=== PATIENT | female | born 2000 | race Two or more races ===

== ENCOUNTER 2022-04-06 16:33 | Emergency (ER) | payer MEDICAID, OTHER ==
[~2022-04-06] VITALS: Ht 165.1 cm; Wt 59.0 kg
[2022-04-06 18:14] LABS: Basophils # (auto) 0 10 ^3/uL (0-0.2); Basophils % (auto) 0.2 % (0.0-2.0); Eosinophils # (auto) 0.1 10 ^3/uL (0-0.8); Eosinophils % (auto) 0.9 % (0.0-7.0); Hematocrit 44.8 % (36.0-46.0); Hemoglobin 14.9 g/dL (12.2-16.2); Lymphocytes # (auto) 0.9 10 ^3/uL (0.4-5.4); Lymphocytes % (auto) 14.8 % (10.0-50.0); Mean Corpuscular Hemoglobin 31.4 pg (28.0-32.0); Mean Corpuscular Hgb Conc. 33.3 g/dL (32.0-36.0); Mean Corpuscular Volume 94.2 fL (80.0-100.0); Monocytes # (auto) 0.4 10 ^3/uL (0-1.3); Monocytes % (auto) 6.1 % (0.0-12.0); Neutrophils # (auto) 4.6 10 ^3/uL (1.6-8.6); Red Blood Cells 4.76 10^6/uL (4.0-5.20); Red Cell Distribution Width 12.6 % (11.8-14.3); White Blood Cell 5.9 10^3/uL (4.4-10.8)
[2022-04-06 18:34] LABS: Albumin 3.7 g/dL (3.4-5.0); Calcium 9.4 mg/dL (8.5-10.1); Potassium 3.8 mmol/L (3.5-5.1)
[2022-04-06 18:38] LABS: BUN/Creatinine Ratio 29.2; Bilirubin, Total 0.7 mg/dL (0.2-1.0); Total Protein 7.8 g/dL (6.4-8.2)
[2022-04-06] MEDS ORDERED: DexAMETHasone SOD PHOS 10MG/1ML VIAL INJ IM ONE (21:15)
[2022-04-06 21:49] VITALS: BP 129/78
== END 2022-04-06 22:15 | disposition home or self-care (01) ==
LOC: EDBD 16:33 → ER 16:33
DX: G80.9 Cerebral palsy, unspecified (principal); K22.4 Dyskinesia of esophagus; T17.400A Unspecified foreign body in trachea causing asphyxiation, initial encounter
CPT/HCPCS: 36415; 70360; 71045; 80053; 85025; 96372; 99284; J1100